=== PATIENT | male | born 1945 | race Caucasian/White ===

== ENCOUNTER 2018-09-06 00:58 | Day surgery (SDC) | payer MEDICARE ==
[~2018-09-06] VITALS: Ht 170.2 cm; Wt 86.2 kg
[2018-09-06] VITALS (8 sets, daily range): BP systolic 123–148; BP diastolic 84–99
[~2018-09-06 00:58] MED LIST: ASPI-1471 PO; PARO-243 PO; PROP120C31 PO
[2018-09-06] MEDS ORDERED: LIDOCAINE/SOD BICARB 8.4% SYR ID ONE (06:00)
[2018-09-06] MEDS ORDERED: FAMOTIDINE 20 MG TAB PO ONE (06:00)
[2018-09-06] MEDS ORDERED: CELECOXIB 200 MG CAP PO ONE (06:00)
[2018-09-06] MEDS ORDERED: ceFAZolin(*) 2GM/D5W 50ML 50 ML IVPB ONE (06:00)
[2018-09-06] MEDS ORDERED: MIDAZOLAM 2 MG/2 ML VIAL IVP PRN (06:00)
[2018-09-06] MEDS ORDERED: NORMOSOL R SOLN(*) 1000 ML BAG 1,000 ML IV PRN (06:00)
[2018-09-06] MEDS ORDERED: ROPIVACAINE 0.2% 20 ML VIAL ONE (06:16)
[2018-09-06] MEDS ORDERED: LIDOCAINE MPF 1% 5 ML VIAL ONE (06:20)
[2018-09-06] MEDS ORDERED: ONDANSETRON 4 MG/2 ML VIAL ONE (06:20)
[2018-09-06] MEDS ORDERED: PROPOFOL EMUL(*) 10MG/ML 20 ML 20 ML ONE (06:20)
[2018-09-06] MEDS ORDERED: DEXAMETHASONE SOD 4 MG/ML VIAL ONE (06:20)
[2018-09-06] MEDS ORDERED: fentaNYL CITR 100 MCG/2 ML AMP ONE ×2 (06:22→08:12)
[2018-09-06] MEDS ORDERED: METOCLOPRAMIDE 10 MG/2 ML SDV ONE (06:47)
[2018-09-06] MEDS ORDERED: LACTATED RINGER 3000 ML BAG IR ONE (08:04)
[2018-09-06] MEDS ORDERED: HYDR-653 PO (08:17)
[2018-09-06] MEDS ORDERED: APAP/HYDROCODONE 325/5 TAB ONE ×2 (08:42→09:18)
--- NOTE | 2018-09-06 10:47 | OPERATIVE REPORT 1 ---
EVENT DATE: September 06, 2018 SURGEON: Amador Carreno MD ANESTHESIOLOGIST: José Luis Veras MD ANESTHESIA: General LMA. SALES SERVICE REPRESENTATIVE: John Martinez PA-C PREOPERATIVE DIAGNOSIS Significant left knee cartilage damage as well as meniscal tearing of the medial and lateral sides as well as loose fragments. POSTOPERATIVE DIAGNOSIS Significant left knee cartilage damage as well as meniscal tearing of the medial and lateral sides as well as loose fragments. PROCEDURE PERFORMED Left knee arthroscopy with partial medial meniscectomy, partial lateral meniscectomy, chondroplasty with loose fragment removal and minor synovectomy. FINDINGS The patient had torn cartilage throughout the knee and a large meniscus tear and significant patellofemoral issues. ESTIMATED BLOOD LOSS Minimal. DRAINS None. COMPLICATIONS None. IMPLANTS USED None. SPECIMENS None. TOURNIQUET TIME About 43 minutes. INDICATIONS/HISTORY This patient is a 72-year old male who presented to my clinic for evaluation of left knee pain and irritation. He had a prior patella fracture and multiple surgeries on this knee and he had some pain and irritation associated with it but he had new pain associated with his meniscus. An MRI revealed that he did have a meniscus tear so, therefore, we talked about the implications of this as well as treatment options. He said he wanted to go ahead with a knee arthroscopy to try and avoid a total knee replacement as he knows he needs a total knee replacement but he would like to try and delay it for a couple of years if he can so, therefore, he wanted to go ahead with knee arthroscopy with the above-named procedure. The risks and benefits were discussed with the patient and inform consent was obtained at the last clinic visit. DESCRIPTION OF PROCEDURE The patient was brought into the operating room. He and the procedure were both verified and he was placed supine on the operating table and induced intubated by anesthesia. The left lower extremity was then prepped and draped in the usual fashion and a time-out was observed, verifying the correct patient and procedure. The standard incisions were made over the firm part of the knee on each side of the patellar tendon and I was able to zoom through the scope laterally but not go up into the patellofemoral joint and up into the suprapatellar pouch secondarily due to the patient's arthritic changes. We then were able to insert a suction shaver on the medial side and then I was able to at least clean up a lot of the synovitis and irritation through the tissue. We also burred down some of the osteophyte from the patella in order to gain access in order to get throughout the entire knee. Once I was able to do this, the distal femoral condyles were almost avoid of all cartilage and they were down to bone on bone arthritic changes and we debrided some of this area through here and removed the rest of the synovitis throughout the front part of the knee. I then went into the medial compartment, where I performed a partial medial meniscectomy on the posterior medial meniscus, where there was a decent size tear in this area with a flap. Once I was able to remove this using a combination of suction shaver and a meniscal biter, I was then able to perform a chondroplasty on the proximal tibia also. I then went into the central compartment. The ACL was actually present and stable to probe. I removed a large osteophyte in the anterior aspect of the knee and went into the lateral compartment and removed a posterior lateral meniscus tear with a combination of a biter and a suction shaver and then also removed a significant amount of irritated tissue over the front part. Unfortunately, the anterior meniscus was almost completely gone so we had to remove a large section of this secondary due to the fact that it was down to bone on bone cartilage and there were only a few strands still remaining of the meniscus. I then reversed the portals and viewed from the medial side and then was able to remove the rest of the bone spurs on the lateral aspect of the patella. We did not remove all the bone spurs, just the ones that were actually escaping into the tissue. I then was able to remove all instrumentation after draining the fluid out of the knee and making sure there were no loose fragments. I then anesthetized the portal sites with ropivacaine, closed them with 4-0 Monocryl in interrupted subcuticular fashion and then dressed them with Steri-Strips, gauze, 4x4's and a soft dressing. Tourniquet was let down after about 43 minutes and the patient was awakened, extubated and transferred to PACU in stable condition. ELIZA
== END 2018-09-06 09:00 | disposition home or self-care (01) ==
LOC: OR 00:58
PROVIDERS: ATTEND Orthopaedic Surgery
DX: M23.252 Derangement of posterior horn of lateral meniscus due to old tear or injury, left knee (principal); M23.222 Derangement of posterior horn of medial meniscus due to old tear or injury, left knee; Z95.0 Presence of cardiac pacemaker; G47.30 Sleep apnea, unspecified
CPT/HCPCS: 29880; A9270; J1100; J2001; J2405; J2704; J2765; J2795; J3010; J0690